=== PATIENT | female | born 1995 | race Two or more races ===

== ENCOUNTER 2020-04-19 19:42 | Emergency (ER) | payer MEDICAID ==
[~2020-04-19] VITALS: Ht 165.1 cm; Wt 91.0 kg
[2020-04-19] MEDS ORDERED: LORAZEPAM 1MG TABLET PO ONE (20:30)
[2020-04-19 22:46] LABS: BASOPHILS % 1.4 % (0.0-2.0); HEMATOCRIT. 44.8 % (36.0-48.0); LYMPHOCYTES % 20.9 % (20.0-50.0); MEAN CORPUSCULAR HEMOGLOBIN 32.8 pg (28.0-32.0); MEAN CORPUSCULAR VOLUME 97.6 fL (81.0-99.0); MEAN PLATELET VOLUME 9.1 fl (7.4-10.4); MONOCYTES % 7.7 % (2.0-8.0); PLATELET 222 x1000/uL (130-400); RED BLOOD CELL COUNT 4.59 mill/uL (4.2-5.4); RED CELL DISTRIBUTION WIDTH 13.1 % (11.6-14.6)
[2020-04-19 22:54] LABS: CHLORIDE 99 mEq/L (98-107)
[2020-04-19 22:57] LABS: HCG SCREEN NEGATIVE
[2020-04-20] MEDS ORDERED: IOHEXOL-350 100 ML BOTTLE ONE (01:52)
[2020-04-20 01:58] VITALS: BP 135/79
== END 2020-04-20 02:02 | disposition home or self-care (01) ==
LOC: ER 19:42
DX: U07.1 COVID-19 (principal); F41.1 Generalized anxiety disorder; K76.0 Fatty (change of) liver, not elsewhere classified; R74.01 Elevation of levels of liver transaminase levels
CPT/HCPCS: 36415; 71045; 71275; 74174; 76705; 80053; 81025; 83690; 83880; 84484; 84703; 85025; 85379; 93005; 99285; C9803; Q9967; U0003